=== PATIENT | female | born 1980 | race Caucasian/White ===

== ENCOUNTER 2021-06-01 23:25 | Inpatient (IN) | payer MEDICAID ==
[~2021-06-01] VITALS: Ht 157.5 cm; Wt 49.9 kg
--- NOTE | 2021-06-01 23:35 | NUR ---
pt biba from [place] with friend and current medical care administrator, they are enroute to [place] where they have increased family support. pt appears diaphoretic, pale, lethargcic and to be having increased difficulty with respirations. EMS unable to obtain bp enroute. on arrival bp 92/64. tachy on arrival. placed on spo2/bp/ecg monitoring at this time. 10 pain in low back, legs and hip. friend at bs, reji hicks at . [facility]. stage 4 stomach cancer spread to bones and lymphnodes Patient is resting comfortably in bed. Bed in lowest, rails engaged, call light on lap. WCTM.
[2021-06-01 23:53] LABS: MEAN CORPUSCULAR HEMOGLOBIN 28.5 pg (27.0-34.8); MEAN CORPUSCULAR HGB CONC 30.6 g/dL (32.4-35.8); MEAN PLATELET VOLUME 7.5 fL (7.4-10.4); PLATELET COUNT 196 x10^3/uL (130-400); RED BLOOD COUNT 3.68 x10^6/uL (3.82-5.3); RED CELL DISTRIBUTION WIDTH 21.5 % (9.6-15.2)
[2021-06-01] MEDS ORDERED: MORPHINE SULFATE 4 MG/ML, 1ML ONE (23:57)
[2021-06-01] MEDS ORDERED: ONDANSETRON 2MG/ML, 2ML ONE (23:57)
[2021-06-02] MEDS ORDERED: SODIUM CHLORIDE 0.9% 1,000ML IVBOLUS ONE
[2021-06-02] MEDS ORDERED: SODIUM CHLORIDE FLUSH 10ML SYR IVF ONE
[2021-06-02] MEDS ORDERED: ONDANSETRON 2MG/ML, 2ML IVPush ONE
[2021-06-02 00:03] LABS: ANION GAP 8 mmol/L (5-15); CALCIUM 8.4 mg/dL (8.5-10.1); CHLORIDE 96 mmol/L (98-107); CREATININE 0.99 mg/dL (0.55-1.02)
[2021-06-02 00:04] LABS: ALANINE AMINOTRANSFERASE 18 U/L (12-78)
[2021-06-02 00:05] LABS: ALKALINE PHOSPHATASE 132 U/L (45-117); BILIRUBIN,TOTAL 0.5 mg/dL (0.2-1.0); TOTAL PROTEIN 6.2 g/dL (6.4-8.2)
--- NOTE | 2021-06-02 00:14 | NUR ---
REPORT FROM WILIAM FRAZIER. WILL ASSUME CARE
[2021-06-02 00:20] LABS: ANISOCYTOSIS 2+; BAND#(MANUAL) 1.97 x10^3/uL; BANDS%(MANUAL) 6 % (0-7); LYMPH#(MANUAL) 0.99 x10^3/uL (1-3.4); LYMPHS% (MANUAL) 3 % (22-44); MONOS#(MANUAL) 0.99 x10^3/uL (0.3-2.7); MONOS% (MANUAL) 3 % (2-9); POLYCHROMASIA 2+; SEG#(MANUAL) 28.95 x10^3/uL (1.8-6.8); SEGS% (MANUAL) 88 % (42-75)
[2021-06-02 00:21] LABS: <PLATELET ESTIMATE> ADEQUATE; <PLT MORPHOLOGY> NORMAL PLT MORPH; OVALOCYTES 1+; STOMATOCYTES 1+
--- NOTE | 2021-06-02 00:24 | NUR ---
PT DECLINED HEROIC MEASURES IN THE CASE THAT HER HEART WERE TO STOP AT THIS TIME. PT NAD, RESTING ON GURNEY, DECLINES ADDITIONAL NEEDS AT THIS TIME, NO CHANGE IN CONDITION, REPORT TO LUTHER FRAZIER PT CARE TRANSFERRED AT THIS TIME.
[2021-06-02] MEDS ORDERED: CEFTRIAXONE 1,000 MG in DEXTROSE 5% 50 ML IVPB ONE (00:30)
[2021-06-02] MEDS ORDERED: AZITHROMYCIN 500 MG in SODIUM CHLORIDE 0.9% 250 ML IVPB ONE (00:30)
--- NOTE | 2021-06-02 00:55 | NUR ---
DR. GILLIAM AT BEDSIDE
--- NOTE | 2021-06-02 01:20 | NUR ---
REPORT GIVEN TO KARIN BARRY ALL QUESTIONS ANSWERED.
[2021-06-02] MEDS ORDERED: MELATONIN 5 MG TABLET PO PRN (01:30)
[2021-06-02] MEDS ORDERED: BACLOFEN 10 MG TABLET PO PRN (01:30)
[2021-06-02] MEDS ORDERED: ATROPINE OPHTH SOLN 1%, 5ML PO PRN (01:30)
[2021-06-02] MEDS ORDERED: ACETAMINOPHEN 325 MG TABLET PO PRN (01:30)
[2021-06-02] MEDS ORDERED: POLYETHYLENE GLYCOL 17 GM PACKET PO PRN (01:30)
[2021-06-02] MEDS ORDERED: ONDANSETRON 2MG/ML, 2ML IVPush PRN (01:30)
[2021-06-02] MEDS ORDERED: FAMOTIDINE 20 MG/2 ML IVPush PRN (01:30)
[2021-06-02] MEDS ORDERED: LORazepam 2 MG/ML, 1ML IVPush PRN (01:30)
--- NOTE | 2021-06-02 01:32 | NUR ---
Patient resting at this time. Respiratory rate 8-12 times per minute. Sats WNL, pt BP remains soft. SBP <90 MAP >65. Pt to be taken upsairs to oncology unit shortly.
[2021-06-02] MEDS ORDERED: FENT1PAT77 TD (01:53)
[2021-06-02] MEDS ORDERED: ONDA4TAB7 PO (01:53)
[2021-06-02] MEDS ORDERED: ALPR0.5T PO (01:56)
[2021-06-02] MEDS ORDERED: HYDR-3241 PO (01:56)
[2021-06-02] MEDS ORDERED: BENZ-17 PO (01:56)
[2021-06-02 02:13] VITALS: BP 66/59
[2021-06-02] MEDS: MORPHINE SULFATE 4 MG/ML, 1ML IVPush PRN ×3 (04:10→14:52)
[2021-06-02] MEDS ORDERED: FENTANYL 12 MCG PATCH TD SCH (09:00)
[2021-06-02] MEDS ORDERED: LORazepam 2 MG/ML, 1ML IVPush SCH (15:00)
[2021-06-02] MEDS ORDERED: MORPHINE SULFATE 4 MG/ML, 1ML IVPush PRN ×2 (17:00)
[2021-06-05] MEDS ORDERED: FENTANYL REMOVE PATCH NOTE XX SCH (03:30)
== END 2021-06-02 20:51 | DRG 720 ==
LOC: ED 06-02 01:08 → EDIP 06-02 01:19 → 4NW 06-02 01:40
PROVIDERS: ADMIT Internal Medicine; ATTEND Hospitalist
DX: A41.9 Sepsis, unspecified organism (principal); J96.01 Acute respiratory failure with hypoxia; E43 Unspecified severe protein-calorie malnutrition; R18.8 Other ascites; R53.2 Functional quadriplegia; C16.9 Malignant neoplasm of stomach, unspecified; C79.9 Secondary malignant neoplasm of unspecified site; J15.9 Unspecified bacterial pneumonia; Z68.20 Body mass index [BMI] 20.0-20.9, adult; Z85.028 Personal history of other malignant neoplasm of stomach
CPT/HCPCS: 36415; 71045; 80053; 85025; 93005; 96365; 99285; G0378; J0696; J2060; J2270; J7030